=== PATIENT | female | born 1940 | race Caucasian/White ===

== ENCOUNTER 2023-10-13 15:47 | Emergency (ER) | payer MEDICARE ==
[~2023-10-13] VITALS: Ht 165.1 cm; Wt 61.4 kg
[~2023-10-13 15:47] MED LIST: ASPIRIN E.C. 8181 MG PO; COZAAR100 MG PO; LASIX 20MG TABL20 MG PO; LOPRESSOR100 MG PO; MYRBETR50MG PO; NORVASC 5MG5 MG/TAB PO; PAXLOVID CO-PA1 EACH PO
[2023-10-13 15:49] VITALS: TEMP 98.7
[2023-10-13 17:21] VITALS: BP 149/84; PULSE 72
[2023-10-16] MEDS ORDERED: CELEXA10 MG PO (14:17)
[2023-10-16] MEDS ORDERED: CENTRUM SILVER1 CTB PO (14:18)
[2023-10-16] MEDS ORDERED: XALATAN EYE DROPS OD (14:19)
[2023-10-16] MEDS ORDERED: SINEMET 25/101 UDTAB PO (14:21)
[2023-10-16] MEDS ORDERED: TOVIAZ4 MG PO (14:23)
[2023-10-16] MEDS ORDERED: TYLENOL 325MG325 MG PO (14:24)
[2023-10-16] MEDS ORDERED: ADVIL200 MG PO (14:25)
[2023-10-19] MEDS ORDERED: NORVASC 10MG10 MG PO (15:40)
== END 2023-10-13 17:25 | disposition home or self-care (01) ==
LOC: COL.ER 15:47
DX: R41.82 Altered mental status, unspecified (principal); W18.30XA Fall on same level, unspecified, initial encounter

== ENCOUNTER 2023-11-07 01:28 | Emergency (ER) | payer MEDICARE ==
[~2023-11-07] VITALS: Ht 165.1 cm; Wt 59.1 kg
[~2023-11-07 01:28] MED LIST changes: +ADVIL200 MG PO; +CELEXA10 MG PO; +CENTRUM SILVER1 CTB PO; +NORVASC 10MG10 MG PO; +SINEMET 25/101 UDTAB PO; +TOVIAZ4 MG PO; +TYLENOL 325MG325 MG PO; +XALATAN EYE DROPS OD
[2023-11-07] MEDS ORDERED: NS 500 ML IV ONE (01:45)
[2023-11-07 02:32] LABS: BASO # 0.1 K/mm3 (0.0-0.2); BASO % 0.4 % (0.0-2.0); EOS # 0.2 K/mm3 (0.0-0.7); EOS % 1.1 % (0.0-4.0); GRAN # 11.4 K/mm3 (1.4-6.5); GRAN % 84.8 % (42.2-75.2); HEMOGLOBIN 11.8 g/dl (12.5-16.0); LYMPH # 1.1 K/mm3 (1.2-3.4); LYMPH % 8.3 % (20.0-51.0); MEAN CELL VOLUME 88 fl (80.0-100.0); MEAN CORPUSCULAR HEMOGLOBIN 30 pg (27-31); MEAN CORPUSCULAR HGB CONC 34 g/dl (33.0-37.0); MONO # 0.6 K/mm3 (0.1-0.6); MONO % 4.4 % (1.7-9.3); PLATELET COUNT 270 K/mm3 (130-400); RED BLOOD COUNT 3.97 M/mm3 (4.10-5.30); REDCELL DISTRIBUTION WIDTH-CV 13.5 % (11.5-14.5)
[2023-11-07 02:37] LABS: HEMATOCRIT 34.8 % (37.0-47.0)
[2023-11-07 02:50] LABS: ALBUMIN 3.4 g/dL (3.4-4.8); BILIRUBIN,TOTAL 0.8 mg/dL (0.2-1.2); CALCIUM 10.3 mg/dL (8.4-10.2); CREATININE, serum 1.32 mg/dL (0.57-1.11); POTASSIUM 3.3 mEq/L (3.5-4.5); TOTAL PROTEIN 6.5 g/dl (6.2-8.1)
[2023-11-07 03:06] LABS: TROPONIN-I 0.035 ng/mL (0.00-0.033)
[2023-11-07 08:07] VITALS: TEMP 98
[2023-11-07] MEDS ORDERED: Morphine 4 MG/ML VIAL IV ONE (10:00)
[2023-11-07 10:30] VITALS: BP 112/75; PULSE 97
== END 2023-11-07 10:30 | disposition short-term general hospital (02) ==
LOC: COL.ER 01:28
PROVIDERS: Emergency Medicine
DX: S32.519A Fracture of superior rim of unspecified pubis, initial encounter for closed fracture (principal); S34.101A Unspecified injury to L1 level of lumbar spinal cord, initial encounter; S32.018A Other fracture of first lumbar vertebra, initial encounter for closed fracture; S22.068A Other fracture of T7-T8 thoracic vertebra, initial encounter for closed fracture; S22.088A Other fracture of T11-T12 vertebra, initial encounter for closed fracture; W19.XXXA Unspecified fall, initial encounter; Y92.099 Unspecified place in other non-institutional residence as the place of occurrence of the external cause
CPT/HCPCS: J2270; J7040